=== PATIENT | female | born 1990 | race Caucasian/White ===

== ENCOUNTER 2021-10-23 19:44 | Emergency (ER) | payer SELFPAY ==
[2021-10-23] MEDS ORDERED: Ondansetron ODT 4 MG TAB ONE (21:54)
[2021-10-24 09:32] LABS: SARS-CoV-2 PCR by NAA DETECTED (NotDetected)
== END 2021-10-23 22:05 | disposition home or self-care (01) ==
LOC: ERS 19:44
DX: U07.1 COVID-19 (principal)
CPT/HCPCS: 87804; 99283; Q0162; U0003; U0005

== ENCOUNTER 2021-10-27 14:20 | Emergency (ER) | payer OTHER, SELFPAY ==
[2021-10-27 16:01] LABS: Bacteria/HPF None Seen HPF (None Seen); Bilirubin Negative (Negative); Blood, Urine 2+ (Negative); Clarity Clear (Clear); Glucose, Urine (Dipstick) Normal (Negative); Ketone, Urine Trace mg/dL (Negative); Leukocyte Negative Leu/uL (Negative); Nitrite Negative (Negative); Protein, Urine (Dipstick) 30 mg/dL (Neg-Trace); RBC/HPF 21-50 HPF (0-3); Specific Gravity, Urine 1.023 (1.002-1.036); Urobilinogen Normal mg/dL (Less than 2); WBC/HPF 0-3 HPF (0-3); pH, Urine 6.5 (5.0-9.0)
[2021-10-27 16:02] LABS: Pregnancy Test - Urine (BHCG) Negative (Negative); Pregu Control Background? CLEAR/WHITE (CLR/WHITE); Pregu Control Bar Appear? YES (CONTROL BAR); Specific Gravity 1.023 (1.002-1.036)
== END 2021-10-27 16:36 | disposition home or self-care (01) ==
LOC: ERS 14:20
DX: U07.1 COVID-19 (principal)
CPT/HCPCS: 81003; 81015; 81025; 99284

== ENCOUNTER 2022-04-21 08:50 | Outpatient (CLI) | payer MEDICAID | END 2022-04-21 08:51 | disposition home or self-care (01) | LOC: BICULT 08:50 | PROVIDERS: ATTEND Nurse Practitioner Women's Health | DX: R10.2 Pelvic and perineal pain (principal) | CPT/HCPCS: 76856 ==